=== PATIENT | male | born 1970 | race Caucasian/White ===

== ENCOUNTER 2017-12-12 18:19 | Emergency (ER) | payer OTHER ==
[~2017-12-12] VITALS: Ht 180.3 cm; Wt 88.9 kg
== END 2017-12-12 20:56 | disposition home or self-care (01) ==
LOC: ER 18:19
DX: M62.838 Other muscle spasm (principal); M79.605 Pain in left leg; M79.604 Pain in right leg

== ENCOUNTER 2017-12-13 19:13 | Emergency (ER) | payer OTHER ==
[~2017-12-13] VITALS: Ht 180.3 cm; Wt 88.9 kg
== END 2017-12-13 21:46 | disposition home or self-care (01) ==
LOC: ER 19:13
DX: R07.89 Other chest pain (principal); M79.605 Pain in left leg; M79.604 Pain in right leg; M79.602 Pain in left arm; F41.8 Other specified anxiety disorders